=== PATIENT | male | born 1965 | race Caucasian/White ===

== ENCOUNTER 2022-01-29 15:58 | Emergency (ER) | payer OTHER ==
[2022-01-29 16:21] LABS: BASOPHIL 0.4 % (0-2); EOSINOPHIL 1.2 % (0-5); HCT 46.9 % (42.0-52.0); LYMPHOCYTE 24.4 % (15-48); MCH 31.5 pg (25.0-31.0); MCHC 34.1 g/dL (32.0-36.0); MCV 92.3 fL (78.0-100.0); MPV 12.5 fL (6.0-9.5); NEUTROPHIL 68.8 % (41-80); NRBC 0; PLT 186 K/uL (150-400); RBC 5.08 M/uL (4.70-6.00); RDW 14.5 % (11.5-14.0); WBC 12.8 K/uL (4.0-10.5)
[2022-01-29 16:30] LABS: PROTHROMBIN TIME 12.9 SECONDS (11.9-13.9)
[2022-01-29 16:31] LABS: PTT 35.8 SECONDS (24.9-34.6)
[2022-01-29 16:34] LABS: ALBUMIN 4.2 g/dL (3.4-5.0); BILIRUBIN - TOTAL 0.6 mg/dL (0.2-1.0); BUN/CREAT RATIO (CALC) 16.8 RATIO; CREATININE 1.91 mg/dL (0.67-1.17); GLOBULIN (CALCULATION) 4.1 g/dL; POTASSIUM 4.3 mmol/L (3.5-5.1); TOTAL PROTEIN 8.3 g/dL (6.4-8.2)
[2022-01-29 18:36] LABS: CORONAVIRUS 2019 SARS-COV-2 NEGATIVE (NEGATIVE); INFLUENZA A NAA NEGATIVE (NEGATIVE)
== END 2022-01-29 18:21 | disposition home or self-care (01) ==
LOC: FER 15:58
PROVIDERS: Emergency Medicine
DX: I21.4 Non-ST elevation (NSTEMI) myocardial infarction (principal); I12.9 Hypertensive chronic kidney disease with stage 1 through stage 4 chronic kidney disease, or unspecified chronic kidney disease; N18.9 Chronic kidney disease, unspecified; E78.5 Hyperlipidemia, unspecified; Z20.822 Contact with and (suspected) exposure to COVID-19; Z79.899 Other long term (current) drug therapy
CPT/HCPCS: 36415; 71045; 80053; 84484; 85025; 85610; 85730; 93005; J1644; J7030; U0002